=== PATIENT | female | born 1960 | race Caucasian/White ===

== ENCOUNTER 2016-05-01 01:09 | Day surgery (SDC) | payer OTHER ==
[~2016-05-01] VITALS: Ht 162.6 cm; Wt 90.5 kg
[2016-05-01] VITALS (14 sets, daily range): BP systolic 118–132; BP diastolic 54–83; PULSE 78–96; RESP 14–18; O2SAT 95–99
[~2016-05-01 01:09] MED LIST: ASCO-294 PO; ASPI-973 PO; ATOM100C PO; BENA1TAB15 PO; CLON0.1T PO; HYDR200T5 PO; IMIP50TA4 PO; IRON18TA PO; LIP40 PO; METO-272 PO; MULT-666 PO; OMEP20TA24 PO; VITA150T PO
[2016-05-01] MEDS ORDERED: CeFAZolin Inj 2 GM in Dextrose 5% 50 ML IV SCH (08:08)
[2016-05-01 12:13] LABS: BASOPHILS % (AUTO) 0.8 % (0-3); MONOCYTES % (AUTO) 8.1 % (4-12); Mean Corpuscular Hemoglobin 29.7 pg (27.0-35.0); Mean Corpuscular Volume 88.9 fL (81-100); NEUTROPHILS % (AUTO) 56.4 % (40-74); Platelet Count 281 bil/L (150-400)
[2016-05-01] MEDS ORDERED: iron PO (12:28)
[2016-05-01 12:29] LABS: INR 0.96 ratio
[2016-05-01] MEDS ORDERED: Heparin 1,000 Unit/mL 10 mL Inj ONE (12:41)
[2016-05-01] MEDS ORDERED: 0.9% Sodium Chloride 0 ML ONE (12:41)
[2016-05-01] MEDS ORDERED: Heparin 5,000 Units/500 mL NS Premix IV ONE (13:14)
[2016-05-01] MEDS ORDERED: 0.9% Sodium Chloride 250 ML ONE (13:14)
[2016-05-01] MEDS ORDERED: Bupivacaine-MPF 0.5% 30 mL Inj ONE (13:14)
[2016-05-01] MEDS ORDERED: fentaNYL-PF 50 mCg/mL 2 mL Inj ONE ×3 (13:56→15:53)
[2016-05-01] MEDS ORDERED: 0.9% Sodium Chloride 1,000 ML ONE (14:31)
[2016-05-01] MEDS: 0.9% Sodium Chloride 1,000 ML IV SCH (16:43)
[2016-05-01] MEDS ORDERED: Ondansetron 2 mg/mL 2 mL Inj IVPUSH PRN (16:45)
--- NOTE | 2016-05-01 18:31 | DRSVH ---
PROCEDURE: X-RAY CHEST ONE VIEW, PORTABLE ([id number]) INDICATIONS: For new leads placed TECHNIQUE: One view of the chest was acquired. COMPARISON: [facility], CHEST 1 VIEW, 03/27/2016, 17:39. FINDINGS: Surgical changes and devices: There is a new dual-lead cardiac defibrillator. Lungs and pleura: No pleural effusions or pneumothorax. Lungs are clear. Mediastinum: Mediastinal contours appear normal. Heart size is normal. Bones and chest wall: No suspicious bony lesions. Overlying soft tissues appear unremarkable. IMPRESSION: No pneumothorax after cardiac defibrillator placement. Dictated by: Sydnee Ruby M.D. on 05/01/2016 at 18:29 Approved by: Sydnee Ruby M.D. on 05/01/2016 at 18:29
[2016-05-01] MEDS ORDERED: HYDROcodone-APAP 5-325 mg Tablet PO ONE (19:17)
--- NOTE | 2016-05-01 19:28 | NUR ---
Pt off bedrest, left arm placed in sling and patient assisted to bathroom for void. No complaints of feeling dizzy or lightheaded, beginning discomfort left pacer site, vicodin 2 tabs p.o given.
--- NOTE | 2016-05-01 19:46 | NUR ---
Telephone report given to Shaylee Morris pt tx to room 3021 in stable condition.Pacer site intact, many family members at bedside.
--- NOTE | 2016-05-01 20:00 | NUR ---
Received from [facility]. Pt received from [facility] at 1941 in stable condition. IAN dressing CDI with minimal sero -sang drainage. Pain acceptable; pt recently medicated with [place]. Pt placed on telemetry and noted to be ventricularly paced in the 80s to 90s. Vitals signs stable. Initial assessment completed. Will cont. to closely monitor over the night.
[2016-05-01] MEDS: Hydroxychloroqine 200 mg Tablet PO SCH (21:50)
[2016-05-01] MEDS: cloNIDine 0.1 mg Tablet PO SCH (21:50)
[2016-05-01] MEDS: MeTOProlol XL 50 mg ER24 Tablet PO SCH (21:50)
[2016-05-01] MEDS: HYDROcodone-APAP 5-325 mg Tablet PO PRN (23:37)
[2016-05-02] MEDS: CeFAZolin Inj 1 GM in IV Premix 1 EACH IV SCH ×2 (00:05→09:19)
[2016-05-02 00:07] VITALS: BP 123/76; PULSE 90; RESP 18; O2SAT 97
[2016-05-02 00:50] VITALS: PULSE 92
--- NOTE | 2016-05-02 02:28 | OP ---
[address] [address] OPERATIVE REPORT PATIENT: BRIDGET ZEE : 1960 MR#: [id number] ADMIT: 05/01/2016 JOB ID: [id number] DATE OF SURGERY: 05/01/2016 PREOPERATIVE DIAGNOSIS(ES): 1. Severe nonischemic cardiomyopathy with ejection fraction 30%-35%. 2. Left bundle branch block with QRS duration 164 msec. 3. [place] [employer] Class III heart failure symptomology. POSTOPERATIVE DIAGNOSIS(ES): 1. Severe nonischemic cardiomyopathy with ejection fraction 30%-35%. 2. Left bundle branch block with QRS duration 164 msec. 3. [place] [employer] Class III heart failure symptomology. PROCEDURES PERFORMED: 1. Biventricular implantable cardioverter-defibrillator implantation with placement of a multi-lead implantable cardioverter-defibrillator generator, right ventricular implantable cardioverter-defibrillator lead, right atrial pacemaker lead, and coronary sinus left ventricular lead. 2. Coronary sinus venogram. 3. Left upper extremity venogram. 4. Fluoroscopy. SURGEON: Tomi Romero MD, electrophysiology attending. SOFTWARE INTEGRATION DEVELOPER: 1. Rochelle Lu MD, interventional cardiology attending 2. Noé Pablo PA-C 3. Bi [place] IMPLANTED DEVICES: 1. [employer] pulse generator, model [id number], serial number [id number]. 2. RA lead, [employer] 2088TC-52 cm, serial number [id number]. 3. RV lead, [employer], 7122Q-58 cm, serial number [id number]. 4. LV lead, [employer], 1458Q-60 cm, serial number [id number]. ANESTHESIA: Bolus dosing of Versed and fentanyl for conscious level of sedation. 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 After discussion of risks and benefits of Bi-V ICD implantation, she opted to proceed. PROCEDURE DESCRIPTION: Following informed consent, the patient was taken to the EP laboratory in a fasting nonsedated state, where she was prepped and draped in the usual sterile fashion. The left infraclavicular region was infiltrated with 40 cc of a 50/50 mixture of bupivacaine and lidocaine. A left upper extremity venogram was performed. Under venographic guidance, the left axillary vein was cannulated three times over the first rib with a micropuncture needle to deploy three 0.035, 3 mm J guidewires. Over the first of these, a 7-[place] tear-away sheath was advanced while the guidewire was removed. Next, a was advanced to the RV outflow tract along with the RV apex. The lead was affixed in position using associated fixation screw. The lead was connected to the external analyzer and demonstrated appropriately sensed R waves, impedance, and capture threshold. The lead was checked to 10 V, and there was no evidence of diaphragmatic stimulation. Attention was now paid to placement of the left ventricular lead. Over another of the previously deployed J guidewires, a 9-[place] tear-away sheath was advanced and guidewires removed. A Super CS decapolar catheter was advanced through a [employer] CS delivery sheath. The catheter was used to engage the coronary sinus, after which the sheath was advanced in. A hand injection of contrast revealed a posterolateral branch of the coronary sinus suitable for lead placement. This was chosen as our position of choice. A quadripolar CS lead was brought to the field and advanced to the branch of choice over a Whisper wire. The lead was connected to external analyzer and demonstrated appropriately sensed R waves, impedance, and capture threshold. The lead was checked to 10 V and there was no evidence of diaphragmatic stimulation. The short 9-[place] sheath was slit loose and the longer CS sheath was maintained for stability while the right atrial lead was placed. We then paid attention for the atrial lead. Over the last of the previously deployed J guidewires, a 6-[place] tear-away sheath was advanced and guidewires removed. Next, the right atrial appendage. Extensive mapping was undertaken in the right atrium. Ultimately, a position of adequate sensing threshold was identified. The lead was affixed in position using associated fixation screw. It was connected to the external analyzer and demonstrated appropriately sensed P waves, impedance, and capture threshold. The lead was checked to 10 V and there was no evidence of diaphragmatic stimulation. Finally, the long CS delivery sheath was slit loose, maintaining stability of the coronary sinus lead. Once advancement of all three leads had been confirmed in multiple fluoroscopic views, the leads were anchored to the prepectoralis fascia using the associated anchoring sleeves and interrupted Ethibond sutures. The pocket was then copiously irrigated with antibiotic solution. This was connected to a generator. The generator was placed into the pocket and was affixed to the floor of the pocket using 1-0 TiCron suture. The incision was then closed with running layers of absorbable suture. The wound was dressed with skin adhesive and a small dressing. At the end the procedure, all needle, sponge, instrument counts were correct. COMPLICATIONS: None. ESTIMATED BLOOD LOSS: Negligible. DEVICE MEASURED DATA: 1. Right atrial lead: 1.7 mV, 490 ohms, 0.75 V at 0.5 msec. 1. RV lead: 8.3 mV, 450 ohms, 0.75 V at 0.5 msec. 2. LV lead: 790 ohms, 0.75 V at 0.5 msec. FINAL PROGRAM PARAMETERS: 1. DDD 60-130 beats per minute with CS lead vector M3 to P4. 2. VF zone at 200 beats per minute. 3. VT monitor zone 150 beats. 4. VT 2 zone at 171 beats per minute with ATP followed by shocks. IMPRESSION: Successful Bi-V implantable cardioverter-defibrillator implantation. PLAN: 1. Stat portable chest x-ray. 2. PA and lateral chest x-ray in the morning. 3. Administration of IV Ancef through tomorrow. Keflex times 7 days. 4. Wound check in one week. ATTENDING STATEMENT: Tomi Romero MD, was present for and has supervised/performed all aspects of this procedure.
[2016-05-02] MEDS: 0.9% Sodium Chloride 1,000 ML IV SCH (02:43)
[2016-05-02 04:00] VITALS: PULSE 90
[2016-05-02 05:34] VITALS: BP 134/73; PULSE 100; RESP 18; O2SAT 96
[2016-05-02] MEDS: HYDROcodone-APAP 5-325 mg Tablet PO PRN (05:43)
--- NOTE | 2016-05-02 06:00 | NUR ---
Shift Update: Pt stable throughout the night ventricularly paced. IAN dressing remains CDI. Pt medicated with 2 tabs of [place] twice during the shift for incisional pain. Pt up with assist to the bathroom. Pt continues to use ice to site. Will cont. to monitor.
[2016-05-02] MEDS ORDERED: Vitamin B Complex/Vit C Tablet PO SCH (08:30)
[2016-05-02] MEDS ORDERED: ATOMOXETINE PO SCH ×2 (08:30)
[2016-05-02] MEDS ORDERED: Ascorbic Acid 500 mg Tablet PO SCH (08:30)
--- NOTE | 2016-05-02 08:56 | PCM.DIMED ---
Discharge Instructions Date of Service May 02, 2016 Dates of Hospitalization Discharge Diagnosis Discharge Diagnosis Nonischemic Cardiomyopathy Left Bundle Branch Block Exertional Dyspnea Diet Low fat, Low Sodium, Heart Healthy Activity Other (Keep incision dry one day. Do not extend left elbow above shoulder for one month. Do not lift, push or pull more than 10 lbs with the left arm for one month.) Call your provider Fever or Chills, Bleeding, Excessive diarrhea Patient Instructions Follow-up in: 1 week Mid-level Provider (F9): Noé Pablo PA-C Follow-up with Mid-level in: 6 weeks Noé Pablo PA-C May 02, 2016 08:56
--- NOTE | 2016-05-02 09:06 | NUR ---
Social Work: Screening / D/C Data: Pt is a 56 y/o female admitted for cardiomyopathy. Pt's PCP is Dr Brewer, pt's insurance is [employer]. EMR reviewed. D/C orders are in. No d/c planning needs anticipated at this time. INSTRUMENT TECHNICIAN HELPER will continue to follow if needs arise. Assessment: Pt who is independent at baseline. Plan: Pt will d/c home via POV today. No d/c planning needs anticipated at this time. INSTRUMENT TECHNICIAN HELPER will continue to follow if needs arise. CHELA Carlos
[2016-05-02] MEDS ORDERED: CEPH500C PO (09:15)
[2016-05-02] MEDS ORDERED: HYDR-4003 PO (09:15)
[2016-05-02] MEDS: MeTOProlol XL 50 mg ER24 Tablet PO SCH (09:26)
[2016-05-02] MEDS: cloNIDine 0.1 mg Tablet PO SCH (09:26)
[2016-05-02] MEDS: Hydroxychloroqine 200 mg Tablet PO SCH (09:27)
[2016-05-02 10:39] VITALS: PULSE 89
--- NOTE | 2016-05-02 10:44 | DRSVH ---
PROCEDURE: X-RAY CHEST, TWO VIEWS ([id number]) INDICATIONS: For new lead placement TECHNIQUE: 2 views of the chest were acquired. COMPARISON: [facility], CR, XR CHEST 1VW (PORTABLE), 05/01/2016, 17:59. FINDINGS: Surgical changes and devices: Stable positioning of left chest AICD. Cholecystectomy clips. Lungs and pleura: No pleural effusions or pneumothorax. Lungs are clear. Mediastinum: Mediastinal contours are normal. Heart size is normal. Bones and chest wall: No suspicious bony abnormalities. Soft tissues appear unremarkable. IMPRESSION: Cardiac pacemaker leads in expected position. No acute cardiopulmonary disease. Dictated by: Froy Panda [facility] Interpreted: Pankaj Young MD on 05/02/2016 at 10:43 Transcribed by: NELIA on 05/02/2016 at 10:43 Approved by: Pankaj Young M.D. on 05/02/2016 at 12:38
--- NOTE | 2016-05-02 11:19 | DIS ---
[address] [address] DISCHARGE SUMMARY PATIENT: BRIDGET ZEE : 1960 MR#: [id number] ADMIT: 05/01/2016 JOB ID: [id number] DIS: 05/02/2016 REASON FOR ADMISSION: Biventricular ICD implant. CHIEF COMPLAINT: Exertional dyspnea and cardiomyopathy. BRIEF HISTORY: The patient is a pleasant 56-year-old woman with severe nonischemic cardiomyopathy who has an LV ejection fraction of 30%-35% along with a left bundle branch block giving a QRS duration of 164 msec. She was first diagnosed in September of 2015, and placed on heart failure medications, but despite this, her ejection fraction remains low. Her main complaint is exertional dyspnea and she gets quite short of breath when doing routine activities. She was advised that her risk of cardiac arrest and a biventricular pacing device could resynchronize the ventricles and potentially improve her overall function. Plans were made to perform the implant. COURSE IN HOSPITAL: The patient was admitted through the [facility] and taken to the laborer tan house, where she received the three lead pacing defibrillator system without incident. She was taken back to the [facility] for recovery from sedation and then transferred up to the third floor [facility] for overnight telemetry and observation. She did well and had no complications overnight. Her device site is closed and dry and there is no hematoma. Chest x-ray in the morning showed good lead position and no pneumothorax. Device based testing showed good capture and sensing thresholds for all three leads and she is receiving greater than 99% biventricular pacing. She felt well for discharge home. DISPOSITION: The patient was discharged home in good condition with a follow up appointment at the [facility] Cardiology office in one week. She was asked not to extend her left elbow above her shoulder for one month and not to lift, push or pull more than 10 pounds with the left arm for one month. She was asked to keep the incision dry until tomorrow evening and that she may shower normally. She will follow her heart healthy and low sodium, low salt diet and take medications as prescribed. DISCHARGE MEDICATIONS: This is a long list. MEDICATIONS: 1. Cephalexin 500 mg b.i.d. for one week. 2. Hydrocodone/acetaminophen 5/325 mg tablets, 1 tablet q.4 hours p.r.n. pain, #20 with no refills. 3. Vitamin C 500 mg daily. 4. Aspirin 81 mg daily. 5. Atomoxetine 100 mg capsules once daily. 6. Atorvastatin 40 mg daily. 7. Benazepril/hydrochlorothiazide 20/25 mg tablets 1 daily. 8. Clonidine 0.1 mg b.i.d. 9. Hydroxychloroquine sulfate 200 mg b.i.d. 10. Imipramine 50 mg each evening. 11. Metoprolol succinate 50 mg b.i.d. 12. Multivitamin 1 daily. 13. Vitamin B complex. 14. Vitamin C tablets 150 mg once daily. 15. Iron 27 mg daily. FINAL DIAGNOSIS: 1. Nonischemic cardiomyopathy. 2. Left bundle branch block. 3. Exertional dyspnea.
--- NOTE | 2016-05-02 13:20 | NUR ---
Discharge nursing note: Patient was discharged to home at 1210 . Patients IVs x32 were removed intact. All of patients discharge information was reviewed with her and her questions were answered to her satisfaction. Patient is going to followup with cardiology after discharge. Patient is aware of her appointment days and times. Patient was brought to the hospital lobby in a W/C by nursing staff member and she was driven to home by her .
== END 2016-05-02 12:05 | disposition home or self-care (01) ==
LOC: SOUO 01:09 → MPC 19:36 → SOUO 05-02 12:05
PROVIDERS: ATTEND Internal Medicine Cardiovascular Disease
DX: I42.9 Cardiomyopathy, unspecified (principal); Z00.6 Encounter for examination for normal comparison and control in clinical research program; I44.7 Left bundle-branch block, unspecified; I50.9 Heart failure, unspecified; Z79.82 Long term (current) use of aspirin
CPT/HCPCS: 33225; 33249; 36415; 71010; 71020; 80048; 85025; 85610; 93005; 99152; 99153; C1730; C1769; C1777; C1882; C1892; C1898; J0690; J1644; J2250; J3010; J7050